=== PATIENT | female | born 1935 | race Native Hawaiian/Other Pacific Islander ===

== ENCOUNTER 2019-04-05 23:12 | Outpatient (CLI) | payer OTHER | END 2019-04-05 23:31 | disposition short-term general hospital (02) | LOC: AMB 23:12 | DX: R42 Dizziness and giddiness (principal); R11.2 Nausea with vomiting, unspecified | CPT/HCPCS: A0425; A0427 ==

== ENCOUNTER 2021-09-20 06:07 | Emergency (ER) | payer OTHER, MEDICARE ==
[~2021-09-20] VITALS: Ht 167.6 cm; Wt 63.5 kg
[2021-09-20 06:10] VITALS: TEMP 97.5
[2021-09-20 07:25] VITALS: BP 133/74
== END 2021-09-20 07:31 | disposition home or self-care (01) ==
LOC: ED 06:07
DX: S00.83XA Contusion of other part of head, initial encounter (principal); S56.811A Strain of other muscles, fascia and tendons at forearm level, right arm, initial encounter; S16.1XXA Strain of muscle, fascia and tendon at neck level, initial encounter; S50.811A Abrasion of right forearm, initial encounter; W01.198A Fall on same level from slipping, tripping and stumbling with subsequent striking against other object, initial encounter; Y92.89 Other specified places as the place of occurrence of the external cause
CPT/HCPCS: 99283

== ENCOUNTER 2021-10-05 07:14 | Outpatient (CLI) | payer OTHER, MEDICARE ==
[2021-10-05 08:29] LABS: PLATELET COUNT 177 K/uL (152-353)
== END 2021-10-05 20:28 | disposition home or self-care (01) ==
LOC: LAB 07:14
PROVIDERS: ATTEND Internal Medicine
DX: Z02.2 Encounter for examination for admission to residential institution (principal); I10 Essential (primary) hypertension; E78.49 Other hyperlipidemia; Z79.899 Other long term (current) drug therapy
CPT/HCPCS: 80053; 80061; 82306; 82607; 82728; 83036; 83540; 84443; 85027; 87081

== ENCOUNTER 2021-10-11 10:05 | Outpatient (CLI) | payer OTHER, MEDICARE | END 2021-10-11 18:57 | disposition home or self-care (01) | LOC: RAD 10:05 | PROVIDERS: ATTEND Internal Medicine | DX: Z13.820 Encounter for screening for osteoporosis (principal); N95.8 Other specified menopausal and perimenopausal disorders; Z91.81 History of falling ==

== ENCOUNTER 2021-10-19 11:11 | Inpatient (IN) | payer OTHER | END 2021-11-19 08:24 | disposition still patient (30) | LOC: PAVB 11:11 | PROVIDERS: ADMIT Internal Medicine; ATTEND Internal Medicine ==

== ENCOUNTER 2021-11-19 08:27 | Inpatient (IN) | payer OTHER | END 2021-12-20 09:34 | disposition still patient (30) | LOC: PAVB 08:27 | PROVIDERS: ADMIT Internal Medicine; ATTEND Internal Medicine ==

== ENCOUNTER 2021-12-20 11:13 | Inpatient (IN) | payer OTHER | END 2022-01-17 09:02 | disposition still patient (30) | LOC: PAVB 11:13 | PROVIDERS: ADMIT Internal Medicine; ATTEND Internal Medicine ==

== ENCOUNTER 2022-01-17 13:03 | Inpatient (IN) | payer OTHER | END 2022-02-17 08:44 | disposition still patient (30) | LOC: PAVB 13:03 | PROVIDERS: ADMIT Internal Medicine; ATTEND Internal Medicine ==

== ENCOUNTER 2022-02-17 10:08 | Inpatient (IN) | payer OTHER | END 2022-03-19 11:00 | disposition still patient (30) | LOC: PAVB 10:08 | PROVIDERS: ADMIT Internal Medicine; ATTEND Internal Medicine ==

== ENCOUNTER 2022-03-19 04:04 | Inpatient (IN) | payer OTHER | END 2022-04-19 09:50 | disposition still patient (30) | LOC: PAVB 04:04 | PROVIDERS: ADMIT Internal Medicine; ATTEND Internal Medicine ==

== ENCOUNTER 2022-03-21 06:10 | Outpatient (CLI) | payer OTHER ==
[2022-03-21 07:50] LABS: PLATELET COUNT 155 K/uL (152-353)
[2022-03-21 08:13] LABS: POTASSIUM 4.7 mmol/L (3.6-5.2)
== END 2022-03-21 18:55 | disposition home or self-care (01) ==
LOC: LAB 06:10
PROVIDERS: ATTEND Internal Medicine
DX: I10 Essential (primary) hypertension (principal)
CPT/HCPCS: 80053; 80061; 85027

== ENCOUNTER 2022-04-19 17:15 | Inpatient (IN) | payer OTHER | END 2022-05-19 09:01 | disposition still patient (30) | LOC: PAVB 17:15 → PAVA 04-21 14:24 | PROVIDERS: ADMIT Internal Medicine; ATTEND Internal Medicine ==

== ENCOUNTER 2022-05-19 10:34 | Inpatient (IN) | payer OTHER | END 2022-06-19 09:24 | disposition still patient (30) | LOC: PAVA 10:34 | PROVIDERS: ADMIT Internal Medicine; ATTEND Internal Medicine ==

== ENCOUNTER 2022-06-19 14:46 | Inpatient (IN) | payer OTHER | END 2022-07-20 08:58 | disposition still patient (30) | LOC: PAVA 14:46 | PROVIDERS: ADMIT Internal Medicine; ATTEND Internal Medicine ==

== ENCOUNTER 2022-07-20 10:07 | Inpatient (IN) | payer OTHER | END 2022-08-19 10:19 | disposition still patient (30) | LOC: PAVA 10:07 | PROVIDERS: ADMIT Internal Medicine; ATTEND Internal Medicine ==

== ENCOUNTER 2022-08-01 13:28 | Outpatient (CLI) | payer OTHER | END 2022-08-01 19:39 | disposition home or self-care (01) | LOC: RAD 13:28 | PROVIDERS: ATTEND Internal Medicine | DX: R26.2 Difficulty in walking, not elsewhere classified (principal) ==

== ENCOUNTER 2022-08-15 14:40 | Outpatient (CLI) | payer OTHER | END 2022-08-15 19:25 | disposition home or self-care (01) | LOC: US 14:40 | PROVIDERS: ATTEND Internal Medicine | DX: R26.2 Difficulty in walking, not elsewhere classified (principal) ==

== ENCOUNTER 2022-08-19 12:05 | Inpatient (IN) | payer OTHER | END 2022-09-19 09:45 | disposition still patient (30) | LOC: PAVA 12:05 | PROVIDERS: ADMIT Internal Medicine; ATTEND Internal Medicine ==

== ENCOUNTER 2022-09-19 10:16 | Inpatient (IN) | payer OTHER | END 2022-10-19 10:05 | disposition still patient (30) | LOC: PAVA 10:16 | PROVIDERS: ADMIT Internal Medicine; ATTEND Internal Medicine ==

== ENCOUNTER → 2022-09-19 | Outpatient (CLI) | payer OTHER ==
[2022-09-19 13:25] LABS: POTASSIUM 4.4 mmol/L (3.6-5.2)
[2022-09-19 14:04] LABS: PLATELET COUNT 193 K/uL (152-353)
== END ==
LOC: LAB 12:38
PROVIDERS: ATTEND Internal Medicine
DX: E78.49 Other hyperlipidemia (principal); I10 Essential (primary) hypertension
CPT/HCPCS: 80053; 80061; 85027

== ENCOUNTER 2022-10-19 10:33 | Inpatient (IN) | payer OTHER | END 2022-11-19 10:31 | disposition still patient (30) | LOC: PAVA 10:33 | PROVIDERS: ADMIT Internal Medicine; ATTEND Internal Medicine ==

== ENCOUNTER 2022-11-19 11:21 | Inpatient (IN) | payer OTHER | END 2022-12-20 08:38 | disposition still patient (30) | LOC: PAVA 11:21 | PROVIDERS: ADMIT Internal Medicine; ATTEND Internal Medicine ==

== ENCOUNTER 2022-12-20 10:08 | Inpatient (IN) | payer OTHER | END 2023-01-17 09:52 | disposition still patient (30) | LOC: PAVA 10:08 | PROVIDERS: ADMIT Internal Medicine; ATTEND Internal Medicine ==

== ENCOUNTER 2023-01-17 11:47 | Inpatient (IN) | payer OTHER | END 2023-02-17 10:59 | disposition still patient (30) | LOC: PAVA 11:47 | PROVIDERS: ADMIT Internal Medicine; ATTEND Internal Medicine ==

== ENCOUNTER 2023-02-09 10:12 | Outpatient (CLI) | payer OTHER | END 2023-02-09 20:36 | disposition home or self-care (01) | LOC: RAD 10:12 | PROVIDERS: ATTEND Internal Medicine | DX: M25.561 Pain in right knee (principal) ==

== ENCOUNTER 2023-02-17 11:16 | Inpatient (IN) | payer OTHER | END 2023-03-19 09:54 | disposition still patient (30) | LOC: PAVA 11:16 | PROVIDERS: ADMIT Internal Medicine; ATTEND Internal Medicine ==

== ENCOUNTER 2023-03-19 10:26 | Inpatient (IN) | payer OTHER | END 2023-04-19 09:08 | disposition still patient (30) | LOC: PAVA 10:26 | PROVIDERS: ADMIT Internal Medicine; ATTEND Internal Medicine ==

== ENCOUNTER 2023-03-19 11:04 | Outpatient (CLI) | payer OTHER ==
[2023-03-19 11:28] LABS: POTASSIUM 4.1 mmol/L (3.6-5.2)
[2023-03-19 11:38] LABS: PLATELET COUNT 163 K/uL (152-353)
== END 2023-03-19 20:40 | disposition home or self-care (01) ==
LOC: LAB 11:04
PROVIDERS: ATTEND Internal Medicine
DX: E78.49 Other hyperlipidemia (principal); R41.89 Other symptoms and signs involving cognitive functions and awareness; M19.90 Unspecified osteoarthritis, unspecified site; I10 Essential (primary) hypertension
CPT/HCPCS: 80053; 80061; 85027

== ENCOUNTER 2023-03-20 09:58 | Outpatient (CLI) | payer OTHER | END 2023-03-20 17:00 | disposition home or self-care (01) | LOC: RAD 09:58 | PROVIDERS: ATTEND Internal Medicine | DX: M25.561 Pain in right knee (principal); M25.562 Pain in left knee ==

== ENCOUNTER 2023-04-19 10:30 | Inpatient (IN) | payer OTHER | END 2023-05-19 17:38 | disposition still patient (30) | LOC: PAVA 10:30 → PAVB 05-09 14:07 | PROVIDERS: ADMIT Internal Medicine; ATTEND Internal Medicine ==

== ENCOUNTER 2023-06-15 11:30 | Outpatient (CLI) | payer OTHER | END 2023-06-15 19:41 | disposition home or self-care (01) | LOC: RAD 11:30 | PROVIDERS: ATTEND Internal Medicine | DX: M25.561 Pain in right knee (principal) ==